=== PATIENT | female | born 1940 | race Caucasian/White ===

== ENCOUNTER 2016-07-16 10:53 | Day surgery (SDC) | payer MEDICARE, OTHER ==
[~2016-07-16 10:53] MED LIST: ASAB PO; ATEN25 PO; FLONASE NAS; GLUCCHONDR PO; IBU800 PO; LIPITOR10 PO; MULTI-VIT HP PO; PRINZIDE1 TA1 PO; [UNRECOGNIZED DRUG - OTHER] PO
[2016-07-16 12:36] LABS: BUN (BLOOD UREA NITROGEN) 12 MG/DL (6-23); CALCIUM, SERUM 9.6 MG/DL (8.5-10.4); CHLORIDE, SERUM 107 MMOL/L (96-112); CO2 (CARBON DIOXIDE) 29 MMOL/L (24-34); CREATININE 0.65 MG/DL (0.55-1.02); GFR AFRICAN AMERICAN 100 ML/MIN (>=60); GFR NON AFRICAN AMERICAN 86 ML/MIN (>=60); GLUCOSE, SERUM 96 MG/DL (60-99); POTASSIUM, SERUM 3.6 MMOL/L (3.5-5.3); SODIUM, SERUM 145 MMOL/L (135-148)
[2016-07-16 13:21] LABS: HEMATOCRIT 44.1 % (36.0-48.0); HEMOGLOBIN 15.5 g/dL (12.0-16.0)
== END 2016-07-16 15:14 | disposition home or self-care (01) ==
LOC: IMGHOLD 10:53 → RADHOLD 10:55 → SDC/OF 12:40
PROVIDERS: Physician Assistant
PROC: BR39ZZZ Magnetic Resonance Imaging (MRI) of Lumbar Spine (ICD-10-PCS; principal; 2016-07-16)
DX: M48.06 Spinal stenosis, lumbar region (principal); M41.9 Scoliosis, unspecified; M19.90 Unspecified osteoarthritis, unspecified site; I10 Essential (primary) hypertension; F40.240 Claustrophobia; Z88.2 Allergy status to sulfonamides; Z88.1 Allergy status to other antibiotic agents; Z79.82 Long term (current) use of aspirin; Z79.899 Other long term (current) drug therapy; Z90.710 Acquired absence of both cervix and uterus; Z98.890 Other specified postprocedural states
CPT/HCPCS: 72148; 80048; 85014; 85018; 93005; A9270-GY; J1170; J2405; J3010